=== PATIENT | female | born 1990 | race Caucasian/White ===

== ENCOUNTER 2019-03-01 08:31 | Emergency (ER) | payer OTHER ==
[~2019-03-01] VITALS: Ht 152.4 cm; Wt 52.0 kg
[2019-03-01 08:35] VITALS: BP 108/62
[2019-03-01] MEDS ORDERED: DEXAMETHASONE 4 MG TABLET ONE (09:15)
[2019-03-01] MEDS ORDERED: DEXAMETHASONE 4 MG TABLET PO ONE (09:30)
[2019-03-01 09:38] LABS: RAPID INFLUENZA A Negative (Negative); RAPID INFLUENZA B Negative (Negative)
--- NOTE | 2019-03-01 09:52 | NUR ---
report from [facility], to assume care of pt.
== END 2019-03-01 10:18 | disposition home or self-care (01) ==
LOC: ED 09:02
DX: J06.9 Acute upper respiratory infection, unspecified (principal)
CPT/HCPCS: 87081; 87400; 87880; 99283